=== PATIENT | female | born 1945 | race African-American/Black ===

== ENCOUNTER 2016-11-16 08:39 | Day surgery (SDC) | payer MEDICAID, MEDICARE ==
[~2016-11-16] VITALS: Ht 177.8 cm; Wt 122.5 kg
[2016-11-16] VITALS (10 sets, daily range): BP systolic 135–156; BP diastolic 85–98
[~2016-11-16 08:39] MED LIST: AMLODIPINE BESY10 MG ORAL; ASPIR 8181 MG ORAL; CARVEDILOL6.25 MG ORAL; HYDRALAZINE HCL50 MG ORAL; LOSARTAN POTASS50 MG ORAL
--- NOTE | 2016-11-16 10:27 | Pre-Procedure Note/Attestation ---
Pre-Procedure Note/Attestation Complete Prior to Procedure Planned Procedure: right Procedure Narrative: Right knee arthroscopy with partial menisecomty Indications for Procedure Pre-Operative Diagnosis: Right knee meniscus tear Attestation I attest that I discussed the nature of the procedure; its benefits; risks and complications; and alternatives (and the risks and benefits of such alternatives ), prior to the procedure, with the patient (or the patient's legal small business sales representative). I attest that, if there was a reasonable possibility of needing a blood transfusion, the patient (or the patient's legal small business sales representative) was given the [facility] standardized written summary, pursuant to the [place] Blood Safety Act ([place] Health and Safety Code # 1645, as amended). I attest that I re-evaluated the patient just prior to the surgery and that there has been no change in the patient's H&P, except as documented below: MANSOOR TAVERAS Nov 16, 2016 10:27
[2016-11-16] MEDS ORDERED: HYDROmorphone 1mg/ml Carpuject SUBQ PRN (10:30)
[2016-11-16] MEDS ORDERED: Norco 5mg/325mg tab ORAL PRN (10:30)
[2016-11-16] MEDS ORDERED: Tylenol #3 tab (300mg/30mg) ORAL PRN (10:30)
[2016-11-16] MEDS ORDERED: D5 1/2NS 1,000 ML IV SCH (10:30)
[2016-11-16] MEDS ORDERED: LR 1000ml 1,000 ML IVLG SCH (10:38)
[2016-11-16] MEDS ORDERED: Hydromorphone 0.5mg/0.5ml inj IVP PRN (10:45)
[2016-11-16] MEDS ORDERED: DiphenhydrAMINE 50mg/ml Inj IVP PRN (10:45)
[2016-11-16] MEDS ORDERED: LR 1000ml 1,000 ML IV SCH (10:45)
--- NOTE | 2016-11-16 11:02 | Anethesia Preoperative Eval ---
Anesthesia Pre-op PMH/ROS General Date of Evaluation: Nov 16, 2016 Time of Evaluation: 10:15 Anesthesiologist: Stevan ASA Score: ASA 3 Mallampati Score Class I : Soft palate, uvula, fauces, pillars visible Class II: Soft palate, uvula, fauces visible Class III: Soft palate, base of uvula visible Class IV: Only hard plate visible Mallampati Classification: Class II Surgeon: Edmond Diagnosis: Meniscus tear, OA right knee Surgical Procedure: Arthroscopy, meniscectomy Family History: no anesthesia problems Allergies: Coded Allergies: CODEINE (Verified Adverse Reaction, Intermediate, nausea; "stomach problem ", 11/15/16) Medications: see eMAR Past Medical History Cardiovascular: Reports: HTN, Denies: CAD, [place], arrhythmia, other, valve dz Pulmonary: Denies: COPD, SUSANNA, asthma, other Gastrointestinal/Genitourinary: Denies: CRI, ESRD, GERD, other Neurologic/Psychiatric: 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 Exam Physician Exam Last Vital Signs Date Time Temp Pulse Resp B/P Pulse Ox O2 Delivery O2 Flow Rate FiO2 11/16/16 09:17 97.5 67 17 141/88 98 Room Air Constitutional: NAD Neurologic: other - Right upper and lower extremity weakness Cardiovascular: RRR, no M/R/G Respiratory: CTA Gastrointestinal: S/NT/ND Airway Exam Mallampati Score: Class II MO: full ROM: full Dentures: lower, upper Anesthesia Pre-op A/P Labs WNL Studies Pre-op Studies: echo - EF = 70%, no WMA Risk Assessment & Plan Assessment: Obese, HTN female with h/o CVA and right sided residual here for left knee scope /meniscectomy Plan: GA, LMA Status Change Before Surgery: No Pre-Antibiotics Drug: Ancef Given Within 1 Hr of Incision: Yes Time Given: 11:55 MANAV SALDIVAR M.D. Nov 16, 2016 11:02
--- NOTE | 2016-11-16 11:03 | Immediate Post-Op Evaluation ---
Immediate Post-Op Evalulation Immediate Post-Op Evalulation Procedure: Left knee arthroscopy, meniscectomy Date of Evaluation: Nov 16, 2016 Time of Evaluation: 12:55 IV Fluids: 500 Blood Pressure Systolic: 155 Blood Pressure Diastolic: 91 Pulse Rate: 82 Respiratory Rate: 20 O2 Sat by Pulse Oximetry: 100 Temperature (Fahrenheit): 97.0 Pain Score (1-10): 0 Nausea: No Vomiting: No Complications No complication Patient Status: awake, patent, none Hydration Status: adequate Drug: Ancef Given Within 1 Hr of Incision: Yes Time Given: 11:55 MANAV SALDIVAR M.D. Nov 16, 2016 11:03
[2016-11-16] MEDS ORDERED: Propofol 10mg/ml 20ml IV ONE (11:30)
[2016-11-16] MEDS ORDERED: Midazolam 2mg/2ml Inj ONE (11:30)
[2016-11-16] MEDS ORDERED: Glycopyrrolate 0.2mg/ml 1ml Vial ONE (11:30)
[2016-11-16] MEDS ORDERED: NS Irrig 4000ml IRRIG ONE (11:30)
[2016-11-16] MEDS ORDERED: fentaNYL 100 mcg/2 mL IV ONE (11:30)
[2016-11-16] MEDS ORDERED: Neostigmine 1mg/ml 10ml Inj ONE (11:30)
[2016-11-16] MEDS ORDERED: Zemuron 50mg/5ml Inj IV ONE (11:30)
[2016-11-16] MEDS ORDERED: LR 1000ml ONE (11:30)
[2016-11-16] MEDS ORDERED: EPINEPHrine 1mg/1ml Amp ONE (11:31)
[2016-11-16] MEDS ORDERED: Bupivacaine w/Epi 0.5% 30ml Vial INJ ONE (11:31)
--- NOTE | 2016-11-16 12:44 | Brief Operative Note ---
Immediate Post Operative Note Operative Note Pre-op Diagnosis: Right knee meniscus tear Procedure: Right knee arthroscopy with partial menisectomy Post-op Diagnosis: same as pre-op Findings: consistent w/pre-op dx studies Surgeon: Edmond Anesthesia: general, local Specimen: none Complications: none Condition: stable Estimated Blood Loss: minimal Drains: none Implant(s) used?: No MANSOOR TAVERAS Nov 16, 2016 12:44
--- NOTE | 2016-11-16 12:51 | 48 Hour Post Anesthesia Eval ---
Post Anesthesia Evaluation Procedure: Left knee arthroscopy, meniscectomy Date of Evaluation: Nov 16, 2016 Time of Evaluation: 13:20 Blood Pressure Systolic: 155 0: 96 Pulse Rate: 81 Respiratory Rate: 14 O2 Sat by Pulse Oximetry: 100 Airway: patent Vomiting: No Pain Intensity: 0 Hydration Status: adequate Cardiopulmonary Status: Stable Mental Status/LOC: patient returned to baseline Follow-up Care/Observations: As per surgery Post-Anesthesia Complications: No anesthetic complication Follow-up care needed: N/A MANAV SALDIVAR M.D. Nov 16, 2016 12:51
--- NOTE | 2016-11-16 20:15 | Operative Note - Dictated ---
DATE OF OPERATION: 11/16/2016 SURGEON: Rey Pruitt M.D. [place]ON LINER: None. ANESTHESIA: General plus local. COMPLICATIONS: None. ANTIBIOTICS: Ancef. PREOPERATIVE DIAGNOSES: Right knee: 1. 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 2. Patellofemoral chondrosis. 3. Medial compartment chondrosis. 4. Posterior horn medial meniscus tear. 5. Degenerative middle horn lateral meniscus tear. POSTOPERATIVE DIAGNOSES: Right knee: 1. 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 2. Patellofemoral chondrosis. 3. Medial compartment chondrosis. 4. Posterior horn medial meniscus tear. 5. Degenerative middle horn lateral meniscus tear. PROCEDURE PERFORMED: Right knee arthroscopy with: 1. Patellofemoral chondroplasty. 2. Medial compartment chondroplasty. 3. Partial lateral meniscectomy. 4. Partial medial meniscectomy. BACKGROUND: The patient has had longstanding right knee pain refractory to nonoperative management. All risks, benefits, and alternatives to surgical intervention were discussed in great detail. Risks included, but were not limited to, bleeding, infection, neurovascular injury, need for additional surgical intervention, failure of pain relief, arthrofibrosis, complications of anesthesia, blood clots, stroke, heart attack, and potentially . She understood these risks, amongst others, and consent was signed. PROCEDURE IN DETAIL: Ms. Bronson was brought into the operating room and placed supine on the operating table. The right knee was correctly verified for surgical site and prepped and draped in standard sterile fashion. Examination under anesthesia revealed symmetric range of motion with the contralateral side, no effusion, and no laxity. ANTEROLATERAL AND ANTEROMEDIAL PORTALS WERE MARKED AND INJECTED WITH 20 ML OF 0.25% MARCAINE WITH EPINEPHRINE. A DIAGNOSTIC ARTHROSCOPY WAS THEN UNDERTAKEN. IT REVEALED THE FOLLOWIN. Normal suprapatellar pouch. 2. Grade 2 diffuse chondrosis patellofemoral articulation. 3. Normal medial gutter. 4. Normal lateral gutter. 5. Normal lateral compartment. 6. Degenerative tear of the middle horn lateral meniscus. 7. Normal anterior cruciate ligament. 8. Normal posterior cruciate ligament. 9. Diffuse grade 2 chondrosis medial femoral condyle. 10. Posterior horn flap tear medial meniscus. 11. 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 Patellofemoral chondroplasty was performed using a 4.5 mm shaver. A similar procedure was performed in the medial femoral condyle. The edges were smooth such that loose bodies would not performed. Calcium pyrophosphate deposition crystalline arthropathy was seen at all levels of the cartilage, even after debridement. The medial meniscal tear was resected using an up biter, left biter, right biter, and was contoured with a 4.5 mm shaver. The lateral meniscus was debrided using a 3.5 mm shaver as well as an up biter. All fluid and debris were then evacuated from the knee. A 10 mL of 0.25% Marcaine with epinephrine were injected into the knee joint. The wounds were copiously irrigated and reapproximated using 4-0 Monocryl in subcuticular fashion. Steri-Strips were used over Mastisol. A dry sterile dressing was applied. A compressive Daniel wrap was fitted. There were no complications. I attest that I performed the entire operation. She was then transferred to recovery in good condition. Rey Pruitt M.D. DR: DAVE JOB#: [id number] CC:
== END 2016-11-16 15:05 | disposition home or self-care (01) ==
LOC: SUR 08:39
DX: M23.221 Derangement of posterior horn of medial meniscus due to old tear or injury, right knee (principal); M23.251 Derangement of posterior horn of lateral meniscus due to old tear or injury, right knee; M94.8X6 Other specified disorders of cartilage, lower leg; M11.861 Other specified crystal arthropathies, right knee; I10 Essential (primary) hypertension; I69.351 Hemiplegia and hemiparesis following cerebral infarction affecting right dominant side; I69.322 Dysarthria following cerebral infarction; E66.01 Morbid (severe) obesity due to excess calories; Z68.41 Body mass index [BMI] 40.0-44.9, adult; D50.9 Iron deficiency anemia, unspecified; M17.0 Bilateral primary osteoarthritis of knee; I50.9 Heart failure, unspecified; Z90.710 Acquired absence of both cervix and uterus; Z88.5 Allergy status to narcotic agent; Z79.82 Long term (current) use of aspirin; Z79.899 Other long term (current) drug therapy
CPT/HCPCS: 29880; J0171; J0690; J2250; J2405; J2704; J2710; J3010; J7120; 94003; 94150